=== PATIENT | female | born 1975 | race Hispanic/Latino ===

== ENCOUNTER 2020-04-28 11:58 | Outpatient (CLI) | payer OTHER ==
--- NOTE | 2020-04-28 12:45 | RAD ---
EXAM: XR Chest Pa Lat STANDARD PROVIDED CLINICAL HISTORY: Pneumonia COMPARISON: None FINDINGS: Cardiac and mediastinal silhouette is within normal limits. There is patchy airspace disease present at the left lung base compatible with pneumonia. The lungs appear otherwise clear. No pleural fluid or pneumothorax apparent. IMPRESSION: Left basilar airspace disease, compatible with pneumonia.
== END 2020-04-28 11:59 | disposition home or self-care (01) ==
LOC: BICRAD 11:58
PROVIDERS: ATTEND Family Medicine
DX: J18.9 Pneumonia, unspecified organism (principal); J98.4 Other disorders of lung
CPT/HCPCS: 71046

== ENCOUNTER 2020-05-20 10:07 | Outpatient (CLI) | payer OTHER | END 2020-05-20 10:08 | disposition home or self-care (01) | LOC: BICRAD 10:07 | PROVIDERS: ATTEND Family Medicine | DX: U07.1 COVID-19 (principal); J12.82 Pneumonia due to coronavirus disease 2019 | CPT/HCPCS: 71046 ==

== ENCOUNTER 2021-05-02 10:58 | Outpatient (CLI) | payer OTHER | END 2021-05-02 10:59 | disposition home or self-care (01) | LOC: CT 10:58 | PROVIDERS: ATTEND Urology | DX: R31.29 Other microscopic hematuria (principal); Z80.51 Family history of malignant neoplasm of kidney; N20.0 Calculus of kidney | CPT/HCPCS: 74178 ==